=== PATIENT | male | born 1955 | race Hispanic/Latino ===

== ENCOUNTER → 2019-05-21 | Outpatient (CLI) | payer OTHER ==
[~2019-05-21] MED LIST: REGADENOSON 0.4 MG/5 ML PF SYG IVP SCH
== END | disposition home or self-care (01) ==
LOC: SHCH 08:39
PROVIDERS: ATTEND Internal Medicine Cardiovascular Disease
DX: I10 Essential (primary) hypertension (principal)
CPT/HCPCS: 78452; 93017; 96374; A9500 ×2; J2785

== ENCOUNTER → 2019-06-14 | Outpatient (CLI) | payer OTHER | END | disposition home or self-care (01) | LOC: SHCH 10:42 | PROVIDERS: ATTEND Internal Medicine Cardiovascular Disease | DX: I10 Essential (primary) hypertension (principal); I25.10 Atherosclerotic heart disease of native coronary artery without angina pectoris | CPT/HCPCS: 93306; 93880 ==

== ENCOUNTER → 2019-07-07 | Outpatient (CLI) | payer OTHER ==
[2019-07-07 10:19] LABS: CREATININE 1.4 mg/dL (0.5-1.5)
== END | disposition home or self-care (01) ==
LOC: LAB 09:36
PROVIDERS: ATTEND Internal Medicine Cardiovascular Disease
DX: I10 Essential (primary) hypertension (principal)
CPT/HCPCS: 36415; 82565; 84520

== ENCOUNTER → 2019-07-08 | Outpatient (CLI) | payer OTHER ==
[~2019-07-08] MED LIST changes: +IOHEXOL 350 MG/ML 100ML INFUS..BTL IV ONE; +IOHEXOL-350 50ML VIAL IV ONE; -REGADENOSON 0.4 MG/5 ML PF SYG IVP SCH
== END | disposition home or self-care (01) ==
LOC: RAH 08:48
PROVIDERS: ATTEND Internal Medicine Cardiovascular Disease
DX: I70.0 Atherosclerosis of aorta (principal); K76.0 Fatty (change of) liver, not elsewhere classified; I73.9 Peripheral vascular disease, unspecified
CPT/HCPCS: 75635; Q9967 ×2

== ENCOUNTER → 2019-12-29 | Outpatient (CLI) | payer OTHER | END | disposition home or self-care (01) | LOC: SHCH 10:14 | PROVIDERS: ATTEND Internal Medicine Cardiovascular Disease | DX: I25.10 Atherosclerotic heart disease of native coronary artery without angina pectoris (principal) | CPT/HCPCS: 93306; 93356 ==

== ENCOUNTER 2020-02-25 09:14 | Observation (INO) | payer OTHER ==
[2020-02-22 14:22] LABS: EOSINOPHILS % (AUTO) 3.3 % (0.0-8.0); HEMATOCRIT 29.8 % (42-54); LYMPHOCYTES % (AUTO) 23.5 % (21.0-51.0); MEAN CORPUSCULAR HEMOGLOBIN 27.3 pg (27.0-33.0); MEAN CORPUSCULAR HGB CONC 30.9 g/dL (32.0-36.0); MEAN CORPUSCULAR VOLUME 88.4 fL (79-99); MONOCYTES % (AUTO) 8.2 % (3.0-13.0); NEUTROPHILS % (AUTO) 63.7 % (40.0-77.0); PLATELET COUNT (AUTO) 217 K/uL (130-400); RED BLOOD CELL COUNT(AUTO) 3.37 MIL/uL (4.50-6.20); RED CELL DISTRIBUTION WIDTH 13.7 % (11.0-15.5); WHITE BLOOD COUNT (AUTO) 7.3 K/uL (4.8-10.8)
[2020-02-22 14:31] LABS: CREATININE 1.8 mg/dL (0.5-1.5); POTASSIUM 5.5 mmol/L (3.5-5.1)
[2020-02-22 14:35] LABS: INR 0.92 (0.85-1.15); PARTIAL THROMBOPLASTIN TIME 26.5 SEC (26.3-35.5)
[2020-02-22 15:54] LABS: APPEARANCE,URINE Clear (CLEAR); BILIRUBIN,URINE Negative (NEGATIVE); COLOR,URINE Yellow (YELLOW); GLUCOSE, URINE (UA) Negative (NEGATIVE); KETONES,URINE Negative (NEGATIVE); LEUKOCYTE ESTERASE ,URINE Trace (NEGATIVE); NITRATE,URINE Negative (NEGATIVE); OCCULT BLOOD,URINE Negative (NEGATIVE); PROTEIN,URINE Negative (NEGATIVE); UROBILINOGEN,URINE 0.2 mg/dL (0.2-1.0)
[2020-02-22 16:27] LABS: BACTERIA,URINE None Seen /HPF (None Seen); RBC,URINE 0-1 /HPF (0-1); SQUAMOUS EPITHELIAL CELL,UR 0-2 /HPF (0-2); WBC,URINE 0-1 /HPF (0-1)
[2020-02-24 10:55] VITALS: BP 130/57
--- NOTE | 2020-02-24 13:55 | NUR ---
ABNORMAL LABS REPORTED BUN 37, CREAT 1.8, HGB 9.2, HCT 29.8, AND ABNORMAL URINALYSIS TO ANUEL DUBOIS. RECEIVED ORDERS TO REPEAT CHEMISTRY IN AM.
[~2020-02-25] VITALS: Ht 175.3 cm; Wt 85.3 kg
[2020-02-25] VITALS (10 sets, daily range): BP systolic 131–151; BP diastolic 66–73
[~2020-02-25 09:14] MED LIST changes: +AEC81 PO; +ASCO250T22 PO; +ATOR40TA69 PO; +CILO50TA PO; +GLIP2.5T2 PO; +HYDR12.54 PO; +INSU3INS3 SQ; -IOHEXOL 350 MG/ML 100ML INFUS..BTL IV ONE; -IOHEXOL-350 50ML VIAL IV ONE; +LEVO25CA4 PO; +LISI10TA7 PO; +METF-444 PO; +METO-408 PO; +SERT100T12 PO; +SODIUM CHLORIDE 0.9% 1000ML 1,000 ML IV SCH; +VITAMIN D3 PO
[2020-02-25 09:54] LABS: CREATININE 1.4 mg/dL (0.5-1.5)
--- NOTE | 2020-02-25 12:00 | NUR ---
PATIENT AAOX3, VITAL SIGNS STABLE. SMALL DRY WOUND TO RIGHT FOOT PINK TOE. DENIES ANY PAIN AT THIS TIME. HOSPITAL ROUTINE EXPLAINED TO PATIENT.
[2020-02-25] MEDS ORDERED: MEPERIDINE-PF 25 MG/ML SYG ONE ×2 (14:00→16:02)
[2020-02-25] MEDS ORDERED: MIDAZOLAM HCL 1 MG/ML 2ML VIAL ONE ×2 (14:00→16:02)
[2020-02-25] MEDS ORDERED: NITROGLYCERIN 2 MG/VIAL VIAL IV ONE (14:00)
[2020-02-25] MEDS ORDERED: HEPARIN SODIUM 1000UNIT/ML 10ML VIAL ONE (14:00)
[2020-02-25] MEDS ORDERED: IODIXANOL 320 MG/ML 100 ML VIAL ONE (14:00)
[2020-02-25] MEDS ORDERED: LIDOCAINE HCL 2% 20ML ONE (14:01)
[2020-02-25] MEDS ORDERED: SODIUM BICARB 50MEQ 50ML VIAL 50 ML ONE (14:02)
[2020-02-25] MEDS ORDERED: CLOPIDOGREL BISULFATE 300 MG TAB ONE ×2 (16:00→16:03)
[2020-02-25] MEDS ORDERED: ASPIRIN 325MG EC TAB 325 MG TABLET.DR PO ONE (16:01)
[2020-02-25] MEDS ORDERED: DEXTROSE 50%-WATER 50 ML DISP.SYRIN IV PRN (16:30)
[2020-02-25] MEDS ORDERED: GLUCAGON 1MG KIT 1 MG ML IM PRN (16:30)
--- NOTE | 2020-02-25 16:30 | NUR ---
PATIENT RETURNED FROM [facility] VIA BED BY BROOKE MURRAY. PATIENT AAOX3, VITAL SIGNS STABLE, DENIES ANY PAIN AT THIS TIME. DRESSING TO LEFT GROIN DRY/INTACT. NO HEMATOMA/NO BLEEDING NOTED. AREA SOFT/NONTENDER.
[2020-02-25] MEDS: SODIUM CHLORIDE 0.9% 1000ML 1,000 ML IV SCH (18:20)
--- NOTE | 2020-02-25 18:30 | NUR ---
PATIENT TRANSFERRED TO ROOM 415 VIA BED. BROOKE MELÉNDEZ IN ROOM TO ASSESS PATIENT. DRESSING TO LEFT GROIN DRY/INTACT, NO HEMATOMA/NO BLEEDING NOTED. AREA SOFT/NONTENDER.
--- NOTE | 2020-02-25 19:55 | NUR ---
PM Assessment Received pt awake flat on bed, reminded till 0100 as reported, agreed. Routine assessment done, plan of care discuss, made aware if everything is OK throughout the night possible d/c tomorrow. Left groin puncture check, dressing dry/intact & soft on palpation. Pt denies discomfort, requested to use the urinal for now, last BM 02/24/2020
[2020-02-25] MEDS ORDERED: INSULIN GLARGINE 100 UNITS/ML 10 ML VIAL SQ SCH (21:00)
[2020-02-25] MEDS: INSULIN HUMULIN R 100 UNIT/ML 3ML SQ SCH (21:00)
[2020-02-25] MEDS ORDERED: SERTRALINE HCL 50 MG TABLET PO SCH (21:00)
[2020-02-25] MEDS ORDERED: ATORVASTATIN CALCIUM 40 MG TABLET PO SCH (21:00)
[2020-02-26 03:11] VITALS: BP 147/75
[2020-02-26 04:26] LABS: HEMATOCRIT 28.9 % (42-54); MEAN CORPUSCULAR HEMOGLOBIN 27.4 pg (27.0-33.0); MEAN CORPUSCULAR HGB CONC 31.8 g/dL (32.0-36.0); RED BLOOD CELL COUNT(AUTO) 3.36 MIL/uL (4.50-6.20); RED CELL DISTRIBUTION WIDTH 13.2 % (11.0-15.5); WHITE BLOOD COUNT (AUTO) 9.1 K/uL (4.8-10.8)
[2020-02-26 05:03] LABS: CREATININE 1.1 mg/dL (0.5-1.5); POTASSIUM 4.3 mmol/L (3.5-5.1)
[2020-02-26] MEDS ORDERED: LEVOTHYROXINE 25 MCG TABLET PO SCH (06:30)
[2020-02-26] MEDS: SODIUM CHLORIDE 0.9% 1000ML 1,000 ML IV SCH (06:55)
[2020-02-26] MEDS: INSULIN HUMULIN R 100 UNIT/ML 3ML SQ SCH ×2 (06:56→11:30)
[2020-02-26 07:00] VITALS: BP 128/68
[2020-02-26] MEDS ORDERED: GLIPIZIDE XL 2.5MG TAB PO SCH (09:00)
[2020-02-26] MEDS ORDERED: ASCORBIC ACID 500 MG TAB PO SCH (09:00)
[2020-02-26] MEDS ORDERED: ASPIRIN 81 MG EC TAB PO SCH (09:00)
[2020-02-26] MEDS ORDERED: HYDROCHLOROTHIAZIDE 25 MG TABLET PO SCH (09:00)
[2020-02-26] MEDS ORDERED: METOPROLOL SUCCINATE 50 MG TAB.SR.24H PO SCH (09:00)
[2020-02-26] MEDS ORDERED: VITAMIN D3 2000 UNIT PO SCH (09:00)
[2020-02-26] MEDS ORDERED: LISINOPRIL 10 MG TABLET PO SCH (09:00)
[2020-02-26 11:00] VITALS: BP 137/68
--- NOTE | 2020-02-26 11:30 | NUR ---
BS PT ALREADY EATEN NO BS TAKE AT THIS TIME.
[2020-02-26] MEDS ORDERED: CLOP75TA14 PO (12:56)
[2020-02-26] MEDS ORDERED: CILO100T PO (12:56)
--- NOTE | 2020-02-26 15:01 | NUR ---
F/U SHOT REVC'D 2 MONTHS AGO
--- NOTE | 2020-02-26 16:00 | NUR ---
D/C PT AAOX4 VS STABLE, D/C INSTRUCTIONS GIVEN WITH RX OF PLAVIX, PT VOICES NO PAIN TO SITE, GROIN NO HEMATOMA, NO BLEEDING DRESSING DRY AND INTACT, DP TO BILATERAL LOWER/EXT PRESENT. PT LEFT VIA WHEELCHAIR WITH F/U INSTRUCTIONS TO SEE LUANA IN 1-2 WEEKS AND PCT IN 2-3 DAYS
== END 2020-02-26 17:00 | disposition home or self-care (01) ==
LOC: DAH 09:14 → DAHIP 09:15 → DAH 09:15 → 4CH 19:15
PROVIDERS: ADMIT Family Medicine; ATTEND Family Medicine
DX: E11.51 Type 2 diabetes mellitus with diabetic peripheral angiopathy without gangrene (principal); I25.10 Atherosclerotic heart disease of native coronary artery without angina pectoris; I10 Essential (primary) hypertension; E78.5 Hyperlipidemia, unspecified; Z95.1 Presence of aortocoronary bypass graft; Z79.84 Long term (current) use of oral hypoglycemic drugs; Z79.899 Other long term (current) drug therapy
CPT/HCPCS: 36415 ×3; 37226; 37228; 71045; 75710; 80048 ×3; 81001; 82948 ×4; 85025; 85027; 85347; 85610; 85730; 93005; 96360; 96361 ×2; A4215; A4216; A4221; A4222; A4223 ×3; A4663; C1725; C1760; C1769 ×2; C1876; C1893; C1894; C2623; G0378 ×25; J1644 ×2; J2175 ×2; J2250 ×2; J3490 ×3; J7030 ×3; Q9967; 99156; 99157

== ENCOUNTER 2020-03-22 15:00 | Emergency (ER) | payer OTHER ==
[~2020-03-22 15:00] MED LIST changes: +CILO100T PO; -CILO50TA PO; +CLOP75TA14 PO; -SODIUM CHLORIDE 0.9% 1000ML 1,000 ML IV SCH
[2020-03-22 16:26] LABS: BASOPHILS % (AUTO) 1.1 % (0.0-5.0); EOSINOPHILS % (AUTO) 3.7 % (0.0-8.0); LYMPHOCYTES % (AUTO) 31.8 % (21.0-51.0); MEAN CORPUSCULAR HEMOGLOBIN 26.6 pg (27.0-33.0); MEAN CORPUSCULAR VOLUME 85.8 fL (79-99); MONOCYTES % (AUTO) 7.1 % (3.0-13.0); NEUTROPHILS % (AUTO) 55.6 % (40.0-77.0); PLATELET COUNT (AUTO) 289 K/uL (130-400); RED BLOOD CELL COUNT(AUTO) 3.38 MIL/uL (4.50-6.20); RED CELL DISTRIBUTION WIDTH 13.7 % (11.0-15.5); WHITE BLOOD COUNT (AUTO) 8.1 K/uL (4.8-10.8)
[2020-03-22 16:34] LABS: CREATININE 2.2 mg/dL (0.5-1.5); POTASSIUM 5.5 mmol/L (3.5-5.1)
[2020-03-22 16:39] LABS: ALBUMIN 3.4 g/dL (3.5-5.0); BILIRUBIN,TOTAL 0.1 mg/dL (0.2-1.0); TOTAL PROTEIN, SERUM 7.5 g/dL (6.0-8.3)
[2020-03-22] MEDS ORDERED: SODIUM POLYSTYRENE SULFONATE 15 GM/60 ML ML ONE (17:06)
[2020-03-22] MEDS ORDERED: CALCIUM GLUCONATE 1 GM/10 ML VIAL IV ONE (17:47)
[2020-03-22] MEDS ORDERED: SODIUM CHLORIDE 0.9% 1000ML 1,000 ML IV ONE (17:47)
[2020-03-22] MEDS ORDERED: SODIUM CHLORIDE 0.9% 100 ML IV ONE (17:48)
[2020-03-23] MEDS ORDERED: CLOP75TA32 PO (15:55)
[2020-03-23] MEDS ORDERED: CILO100T PO (15:55)
== END 2020-03-22 19:36 | disposition home or self-care (01) ==
LOC: EDH 15:00
DX: E87.5 Hyperkalemia (principal); I12.9 Hypertensive chronic kidney disease with stage 1 through stage 4 chronic kidney disease, or unspecified chronic kidney disease; E11.22 Type 2 diabetes mellitus with diabetic chronic kidney disease; N18.30 Chronic kidney disease, stage 3 unspecified; E78.00 Pure hypercholesterolemia, unspecified; I25.10 Atherosclerotic heart disease of native coronary artery without angina pectoris; Z88.6 Allergy status to analgesic agent; Z95.1 Presence of aortocoronary bypass graft; Z90.49 Acquired absence of other specified parts of digestive tract
CPT/HCPCS: 36415; 80053; 85025; 96365; 99284; J0610; J7030

== ENCOUNTER 2020-03-24 06:49 | Day surgery (SDC) | payer OTHER ==
[2020-03-22 11:24] LABS: BASOPHILS % (AUTO) 1.1 % (0.0-5.0); EOSINOPHILS % (AUTO) 3.4 % (0.0-8.0); HEMATOCRIT 28.2 % (42-54); LYMPHOCYTES % (AUTO) 25.4 % (21.0-51.0); MEAN CORPUSCULAR HEMOGLOBIN 26.9 pg (27.0-33.0); MEAN CORPUSCULAR HGB CONC 30.9 g/dL (32.0-36.0); MONOCYTES % (AUTO) 6.3 % (3.0-13.0); NEUTROPHILS % (AUTO) 63.2 % (40.0-77.0); PLATELET COUNT (AUTO) 282 K/uL (130-400); RED BLOOD CELL COUNT(AUTO) 3.24 MIL/uL (4.50-6.20); RED CELL DISTRIBUTION WIDTH 13.6 % (11.0-15.5)
[2020-03-22 11:30] LABS: APPEARANCE,URINE Clear (CLEAR); BILIRUBIN,URINE Negative (NEGATIVE); COLOR,URINE Yellow (YELLOW); GLUCOSE, URINE (UA) Negative (NEGATIVE); KETONES,URINE Negative (NEGATIVE); LEUKOCYTE ESTERASE ,URINE Small (NEGATIVE); NITRATE,URINE Negative (NEGATIVE); OCCULT BLOOD,URINE Negative (NEGATIVE); PROTEIN,URINE Negative (NEGATIVE); UROBILINOGEN,URINE 0.2 mg/dL (0.2-1.0)
[2020-03-22 11:33] LABS: CREATININE 2.3 mg/dL (0.5-1.5)
[2020-03-22 11:47] LABS: INR 0.99 (0.85-1.15); POTASSIUM 6.3 mmol/L (3.5-5.1); PROTHROMBIN TIME 10.6 SEC (9.6-11.6)
[2020-03-22 11:48] LABS: PARTIAL THROMBOPLASTIN TIME 27.8 SEC (26.3-35.5)
[2020-03-22 11:54] LABS: BACTERIA,URINE Few /HPF (None Seen); RBC,URINE 0-1 /HPF (0-1); SQUAMOUS EPITHELIAL CELL,UR 0-2 /HPF (0-2)
[2020-03-23 10:23] VITALS: BP 136/61
[~2020-03-24] VITALS: Ht 175.3 cm; Wt 84.6 kg
[2020-03-24] VITALS (11 sets, daily range): BP systolic 130–176; BP diastolic 61–79
[~2020-03-24 06:49] MED LIST changes: -AEC81 PO; -ASCO250T22 PO; -CLOP75TA14 PO; +CLOP75TA32 PO; -HYDR12.54 PO; -LISI10TA7 PO; +SODIUM CHLORIDE 0.9% 500ML 500 ML IV SCH; -VITAMIN D3 PO
[2020-03-24 07:18] LABS: HEMATOCRIT 29.6 % (42-54); LYMPHOCYTES % (AUTO) 31.8 % (21.0-51.0); MEAN CORPUSCULAR HGB CONC 30.4 g/dL (32.0-36.0); MEAN CORPUSCULAR VOLUME 85.5 fL (79-99); MONOCYTES % (AUTO) 7.2 % (3.0-13.0); NEUTROPHILS % (AUTO) 55.6 % (40.0-77.0); PLATELET COUNT (AUTO) 286 K/uL (130-400); RED BLOOD CELL COUNT(AUTO) 3.46 MIL/uL (4.50-6.20); RED CELL DISTRIBUTION WIDTH 13.5 % (11.0-15.5); WHITE BLOOD COUNT (AUTO) 6.8 K/uL (4.8-10.8)
[2020-03-24 07:29] LABS: CREATININE 1.6 mg/dL (0.5-1.5); POTASSIUM 5.6 mmol/L (3.5-5.1)
[2020-03-24] MEDS ORDERED: SODIUM CHLORIDE 0.9% 1000ML 1,000 ML IV SCH ×2 (08:00→11:30)
[2020-03-24] MEDS ORDERED: SODIUM BICARB 50MEQ 50ML VIAL 50 ML ONE (08:57)
[2020-03-24] MEDS ORDERED: HEPARIN SODIUM 1000UNIT/ML 10ML VIAL ONE (08:57)
[2020-03-24] MEDS ORDERED: NITROGLYCERIN 2 MG/VIAL VIAL IV ONE (08:57)
[2020-03-24] MEDS ORDERED: IOHEXOL-350 50ML VIAL IV ONE (08:58)
[2020-03-24] MEDS ORDERED: IOHEXOL 350 MG/ML 100ML INFUS..BTL IV ONE (08:58)
[2020-03-24] MEDS ORDERED: MIDAZOLAM HCL 1 MG/ML 2ML VIAL ONE (09:47)
[2020-03-24] MEDS ORDERED: MEPERIDINE-PF 25 MG/ML SYG ONE (09:47)
[2020-03-24] MEDS ORDERED: DEXTROSE 50%-WATER 50 ML DISP.SYRIN IV PRN (11:30)
[2020-03-24] MEDS ORDERED: INSULIN HUMULIN R 100 UNIT/ML 3ML SQ SCH (11:30)
[2020-03-24] MEDS ORDERED: GLUCAGON 1MG KIT 1 MG ML IM PRN (11:30)
== END 2020-03-24 17:28 | disposition home or self-care (01) ==
LOC: DAH 06:49
PROVIDERS: ATTEND Internal Medicine Cardiovascular Disease
DX: I25.118 Atherosclerotic heart disease of native coronary artery with other forms of angina pectoris (principal); I10 Essential (primary) hypertension; E78.5 Hyperlipidemia, unspecified; E11.9 Type 2 diabetes mellitus without complications; Z88.5 Allergy status to narcotic agent; Z79.01 Long term (current) use of anticoagulants; Z79.4 Long term (current) use of insulin; Z79.899 Other long term (current) drug therapy
CPT/HCPCS: 36415 ×2; 71045; 80048 ×2; 81001; 82948 ×3; 85025 ×2; 85610; 85730; 93005; 93461; A4215; A4216; A4221; A4222; A4223 ×3; A4606; A4663; C1760; C1769 ×3; C1893; C1894 ×2; J1644; J2175; J2250; J3490 ×2; Q9965; Q9967; 99156; 99157

== ENCOUNTER 2020-05-26 17:51 | Inpatient (IN) | payer OTHER ==
[~2020-05-26] VITALS: Ht 175.3 cm; Wt 79.1 kg
[2020-05-26] MEDS: METFORMIN HCL 500 MG TABLET PO SCH (08:25)
[2020-05-26] MEDS: ATORVASTATIN 40 MG TABLET PO SCH (08:25)
[~2020-05-26 17:51] MED LIST changes: +SERT-440 PO; -SERT100T12 PO; -SODIUM CHLORIDE 0.9% 500ML 500 ML IV SCH
[2020-05-26] MEDS ORDERED: ASPIRIN 325 MG TABLET ONE (17:59)
[2020-05-26 18:17] LABS: BASOPHILS % (AUTO) 0.5 % (0.0-5.0); HEMATOCRIT 25.7 % (42-54); LYMPHOCYTES % (AUTO) 10.7 % (21.0-51.0); MEAN CORPUSCULAR HEMOGLOBIN 25.1 pg (27.0-33.0); MEAN CORPUSCULAR HGB CONC 31.5 g/dL (32.0-36.0); MEAN CORPUSCULAR VOLUME 79.6 fL (79-99); MONOCYTES % (AUTO) 11.2 % (3.0-13.0); NEUTROPHILS % (AUTO) 76.2 % (40.0-77.0); PLATELET COUNT (AUTO) 278 K/uL (130-400); RED BLOOD CELL COUNT(AUTO) 3.23 MIL/uL (4.50-6.20); RED CELL DISTRIBUTION WIDTH 15.2 % (11.0-15.5); WHITE BLOOD COUNT (AUTO) 13.4 K/uL (4.8-10.8)
[2020-05-26 18:32] LABS: APPEARANCE,URINE Clear (CLEAR); BILIRUBIN,URINE Negative (NEGATIVE); COLOR,URINE Yellow (YELLOW); GLUCOSE, URINE (UA) Negative (NEGATIVE); KETONES,URINE Negative (NEGATIVE); LEUKOCYTE ESTERASE ,URINE Small (NEGATIVE); NITRATE,URINE Positive (NEGATIVE); OCCULT BLOOD,URINE Small (NEGATIVE); PROTEIN,URINE POS 2+ mg/dL (NEGATIVE); UROBILINOGEN,URINE 0.2 mg/dL (0.2-1.0)
[2020-05-26 18:36] LABS: CREATININE 1.7 mg/dL (0.5-1.5)
[2020-05-26 18:42] LABS: BACTERIA,URINE Many /HPF (None Seen); SQUAMOUS EPITHELIAL CELL,UR 0-2 /HPF (0-2)
[2020-05-26 18:42] LABS: INR 0.96 (0.85-1.15); PROTHROMBIN TIME 10.5 SEC (9.6-11.6)
[2020-05-26 18:43] LABS: ALBUMIN 3.5 g/dL (3.5-5.0); BILIRUBIN,TOTAL 0.3 mg/dL (0.2-1.0); TOTAL PROTEIN, SERUM 7.6 g/dL (6.0-8.3)
[2020-05-26 18:43] LABS: MUCUS,URINE Few LPF (None Seen)
[2020-05-26 18:44] LABS: PARTIAL THROMBOPLASTIN TIME 27.4 SEC (26.3-35.5)
[2020-05-26] MEDS ORDERED: METFORMIN HCL 500 MG TABLET ONE (19:41)
[2020-05-26] MEDS ORDERED: ATORVASTATIN 40 MG TABLET ONE (19:41)
[2020-05-26] MEDS ORDERED: SERTRALINE HCL 50 MG TABLET ONE (19:42)
[2020-05-26] MEDS ORDERED: NITROGLYCERIN 1GM OINT 1 INCH/1GM TD ONE (19:42)
[2020-05-26] MEDS ORDERED: METOPROLOL TARTRATE 25 MG TAB ONE (19:42)
[2020-05-26] MEDS ORDERED: 0.9%NACL 1000ML 1,000 ML IV ONE (20:14)
[2020-05-26] MEDS ORDERED: NON-FORMULARY MEDICATION 1 EACH (Sertraline HCl 100 MG) PO SCH (21:00)
[2020-05-26] MEDS ORDERED: ALBUTEROL 0.083% 2.5 MG/3 ML INH IH PRN (21:00)
[2020-05-26] MEDS ORDERED: LACTULOSE 20 GM/30 ML UDCUP PO PRN (21:00)
[2020-05-26] MEDS ORDERED: DiphenhydrAMINE HCL 50 MG/ML VIAL IV PRN (21:00)
[2020-05-26] MEDS ORDERED: NITROGLYCERIN 0.4 MG SL TAB SL PRN (21:00)
[2020-05-26] MEDS ORDERED: ACETAMINOPHEN 325 MG TAB PO PRN ×2 (21:00)
[2020-05-26] MEDS ORDERED: FAMOTIDINE 20MG VIAL IV SCH (21:00)
[2020-05-26] MEDS ORDERED: ONDANSETRON 4MG INJ IV PRN (21:00)
[2020-05-26] MEDS ORDERED: DOXYCYCLINE 100MG+NS 250ML IV SCH (21:00)
[2020-05-26] MEDS ORDERED: [UNRECOGNIZED DRUG - OTHER] SQ SCH (21:00)
[2020-05-26] MEDS ORDERED: DIPHENHYDRAMINE HCL 25 MG CAPSULE PO PRN (21:00)
[2020-05-26] MEDS ORDERED: MAG/ALUM/SIMETH 30 ML UDCUP PO PRN (21:00)
[2020-05-26] MEDS ORDERED: GUAIFENESIN-DM 200/20 MG 10 ML PO PRN (21:00)
[2020-05-26] MEDS ORDERED: INSULIN GLARGINE HUM REC ANLOG 28 UNIT SQ SCH (21:00)
[2020-05-26] MEDS ORDERED: FAMOTIDINE 20MG VIAL IV ONE (21:31)
[2020-05-26] MEDS ORDERED: CEFTRIAXONE 1G VIAL ONE (21:31)
[2020-05-26] MEDS ORDERED: DOXYCYCLINE 100MG+NS 250ML 250 ML IV ONE (21:31)
[2020-05-26 22:50] VITALS: BP 128/68
[2020-05-26 23:50] VITALS: BP 128/68
[2020-05-27] VITALS: BP_SYST 120; BP_SYST 126; BP_DIAS 65; BP_DIAS 75
[2020-05-27 01:15] LABS: BASOPHILS % (AUTO) 0.4 % (0.0-5.0); EOSINOPHILS % (AUTO) 0.4 % (0.0-8.0); LYMPHOCYTES % (AUTO) 9.4 % (21.0-51.0); MEAN CORPUSCULAR HEMOGLOBIN 25.1 pg (27.0-33.0); MEAN CORPUSCULAR HGB CONC 31.4 g/dL (32.0-36.0); MONOCYTES % (AUTO) 12.2 % (3.0-13.0); NEUTROPHILS % (AUTO) 77.3 % (40.0-77.0); PLATELET COUNT (AUTO) 212 K/uL (130-400); RED BLOOD CELL COUNT(AUTO) 2.75 MIL/uL (4.50-6.20); RED CELL DISTRIBUTION WIDTH 15.4 % (11.0-15.5); WHITE BLOOD COUNT (AUTO) 13.5 K/uL (4.8-10.8)
[2020-05-27 01:22] LABS: CREATININE 1.4 mg/dL (0.5-1.5); POTASSIUM 3.9 mmol/L (3.5-5.1)
[2020-05-27] MEDS: NITROGLYCERIN 1GM OINT 1 INCH/1GM TD SCH ×4 (02:02→17:05)
[2020-05-27 04:00] VITALS: BP 125/69
[2020-05-27] MEDS: LEVOTHYROXINE 25 MCG TABLET PO SCH (07:29)
[2020-05-27 08:00] VITALS: BP 109/65
[2020-05-27] MEDS: INSULIN GLARGINE 100 UNITS/ML 10 ML VIAL SQ SCH ×2 (08:25→21:00)
[2020-05-27] MEDS: SERTRALINE HCL 50 MG TABLET PO SCH ×2 (08:25→20:19)
[2020-05-27] MEDS: METOPROLOL TARTRATE 25 MG TAB PO SCH ×3 (08:25→20:18)
[2020-05-27] MEDS: DOXYCYCLINE 100MG+NS 250ML 250 ML IV SCH ×3 (08:25→20:20)
[2020-05-27] MEDS: CEFTRIAXONE 1G VIAL IVP SCH ×3 (08:25→20:18)
[2020-05-27] MEDS ORDERED: NON-FORMULARY MEDICATION 1 EACH (Levothyroxine Sodium (Levothyroxine) 25 MCG) PO SCH (09:00)
[2020-05-27] MEDS: GLIPIZIDE XL 2.5MG TAB PO SCH (10:51)
[2020-05-27] MEDS: METFORMIN HCL 500 MG TABLET PO SCH ×2 (10:51→20:18)
[2020-05-27 10:58] LABS: HEMATOCRIT 22.6 % (42-54)
[2020-05-27 11:13] LABS: ALBUMIN 2.7 g/dL (3.5-5.0); BILIRUBIN,TOTAL 0.3 mg/dL (0.2-1.0); CREATININE 1.3 mg/dL (0.5-1.5); POTASSIUM 3.8 mmol/L (3.5-5.1); TOTAL PROTEIN, SERUM 6.4 g/dL (6.0-8.3)
[2020-05-27 11:40] VITALS: BP 120/65
[2020-05-27 15:07] LABS: HEMATOCRIT 22.6 % (42-54)
[2020-05-27] MEDS ORDERED: COMPOUND IV REFRIGERATED 1 EACH IVSOLN MISC PRN (15:30)
[2020-05-27] MEDS ORDERED: PANTOPRAZOLE 40 MG TAB DR PO SCH (15:45)
[2020-05-27 16:00] VITALS: BP 118/63
[2020-05-27] MEDS ORDERED: PANTOPRAZOLE 40 MG/VIAL ONE (17:08)
[2020-05-27] MEDS ORDERED: PANTOPRAZOLE 40 MG TAB DR ONE (17:10)
[2020-05-27] MEDS: PANTOPRAZOLE 40MG INJ 80 MG in 0.9%NACL 100ML 100 ML IVP SCH (17:15)
[2020-05-27 20:00] VITALS: BP 114/68
[2020-05-27] MEDS: ATORVASTATIN 40 MG TABLET PO SCH (20:18)
[2020-05-27 21:35] LABS: HEMATOCRIT 22.7 % (42-54)
[2020-05-28] MEDS: NITROGLYCERIN 1GM OINT 1 INCH/1GM TD SCH ×4 (01:28→20:24)
[2020-05-28 03:00] VITALS: BP 123/66
[2020-05-28] MEDS: LEVOTHYROXINE 25 MCG TABLET PO SCH (05:45)
[2020-05-28 06:10] LABS: BASOPHILS % (AUTO) 0.5 % (0.0-5.0); EOSINOPHILS % (AUTO) 2.4 % (0.0-8.0); HEMATOCRIT 23.4 % (42-54); LYMPHOCYTES % (AUTO) 15.3 % (21.0-51.0); MEAN CORPUSCULAR HEMOGLOBIN 24.6 pg (27.0-33.0); MEAN CORPUSCULAR HGB CONC 30.8 g/dL (32.0-36.0); MEAN CORPUSCULAR VOLUME 79.9 fL (79-99); MONOCYTES % (AUTO) 11.5 % (3.0-13.0); PLATELET COUNT (AUTO) 247 K/uL (130-400); RED BLOOD CELL COUNT(AUTO) 2.93 MIL/uL (4.50-6.20); RED CELL DISTRIBUTION WIDTH 15.1 % (11.0-15.5); WHITE BLOOD COUNT (AUTO) 8.8 K/uL (4.8-10.8)
[2020-05-28 07:54] VITALS: BP 114/64
[2020-05-28] MEDS: METFORMIN HCL 500 MG TABLET PO SCH ×2 (09:00→20:24)
[2020-05-28] MEDS: GLIPIZIDE XL 2.5MG TAB PO SCH (09:00)
[2020-05-28] MEDS: DOXYCYCLINE 100MG+NS 250ML 250 ML IV SCH (09:08)
[2020-05-28] MEDS: METOPROLOL TARTRATE 25 MG TAB PO SCH ×2 (09:08→20:24)
[2020-05-28] MEDS: CEFTRIAXONE 1G VIAL IVP SCH ×2 (09:08→20:24)
[2020-05-28] MEDS: PANTOPRAZOLE 40MG INJ 80 MG in 0.9%NACL 100ML 100 ML IVP SCH (11:28)
[2020-05-28 11:58] VITALS: BP 125/71
[2020-05-28 14:04] LABS: HEMATOCRIT 22.9 % (42-54)
[2020-05-28 16:00] VITALS: BP 133/66
[2020-05-28 20:00] VITALS: BP 141/72
[2020-05-28] MEDS: ATORVASTATIN 40 MG TABLET PO SCH (20:24)
[2020-05-28] MEDS: SERTRALINE HCL 50 MG TABLET PO SCH (20:25)
[2020-05-28] MEDS: INSULIN GLARGINE 100 UNITS/ML 10 ML VIAL SQ SCH (21:00)
[2020-05-28 21:46] LABS: HEMATOCRIT 23.1 % (42-54)
[2020-05-28] MEDS ORDERED: PANTOPRAZOLE 40 MG/VIAL ONE (23:18)
[2020-05-28] MEDS ORDERED: 0.9% NACL 250ML 250 ML IV ONE (23:24)
[2020-05-29] VITALS (12 sets, daily range): BP systolic 81–143; BP diastolic 41–69
[2020-05-29] MEDS: NITROGLYCERIN 1GM OINT 1 INCH/1GM TD SCH ×4 (02:44→19:40)
[2020-05-29] MEDS: LEVOTHYROXINE 25 MCG TABLET PO SCH (05:24)
[2020-05-29 05:33] LABS: BASOPHILS % (AUTO) 0.6 % (0.0-5.0); EOSINOPHILS % (AUTO) 2.8 % (0.0-8.0); HEMATOCRIT 23.8 % (42-54); LYMPHOCYTES % (AUTO) 16.9 % (21.0-51.0); MEAN CORPUSCULAR HEMOGLOBIN 24.4 pg (27.0-33.0); MEAN CORPUSCULAR HGB CONC 30.3 g/dL (32.0-36.0); MEAN CORPUSCULAR VOLUME 80.7 fL (79-99); MONOCYTES % (AUTO) 13.1 % (3.0-13.0); NEUTROPHILS % (AUTO) 66.2 % (40.0-77.0); PLATELET COUNT (AUTO) 252 K/uL (130-400); RED BLOOD CELL COUNT(AUTO) 2.95 MIL/uL (4.50-6.20); RED CELL DISTRIBUTION WIDTH 15.1 % (11.0-15.5); WHITE BLOOD COUNT (AUTO) 8.5 K/uL (4.8-10.8)
[2020-05-29] MEDS: CEFTRIAXONE 1G VIAL IVP SCH ×2 (08:21→21:29)
[2020-05-29] MEDS: METOPROLOL TARTRATE 25 MG TAB PO SCH ×2 (09:00→21:28)
[2020-05-29] MEDS: METFORMIN HCL 500 MG TABLET PO SCH ×2 (09:00→21:27)
[2020-05-29] MEDS: GLIPIZIDE XL 2.5MG TAB PO SCH (09:00)
[2020-05-29] MEDS ORDERED: PROPOFOL 10 MG/ML 20ML VIAL IV ONE (11:22)
[2020-05-29] MEDS ORDERED: LACTULOSE 20 GM/30 ML UDCUP PO SCH ×2 (13:30→15:00)
[2020-05-29] MEDS ORDERED: MAGNESIUM CITRATE 296 ML SOLUTION PO SCH (15:30)
[2020-05-29] MEDS ORDERED: PEG 3350/NA SULF,BICARB,CL/KCL 4000 ML SOLN PO SCH (16:00)
[2020-05-29] MEDS ORDERED: BISACODYL 5 MG TABLET.DR PO SCH (17:00)
[2020-05-29] MEDS: ATORVASTATIN 40 MG TABLET PO SCH (21:27)
[2020-05-29] MEDS: SERTRALINE HCL 50 MG TABLET PO SCH (21:27)
[2020-05-29] MEDS: INSULIN GLARGINE 100 UNITS/ML 10 ML VIAL SQ SCH (21:29)
[2020-05-30] VITALS (21 sets, daily range): BP systolic 112–159; BP diastolic 48–81
[2020-05-30] MEDS: NITROGLYCERIN 1GM OINT 1 INCH/1GM TD SCH ×4 (01:01→19:00)
[2020-05-30 04:58] LABS: BASOPHILS % (AUTO) 0.9 % (0.0-5.0); EOSINOPHILS % (AUTO) 3.7 % (0.0-8.0); HEMATOCRIT 23.9 % (42-54); LYMPHOCYTES % (AUTO) 21.5 % (21.0-51.0); MEAN CORPUSCULAR HEMOGLOBIN 24.3 pg (27.0-33.0); MEAN CORPUSCULAR HGB CONC 30.5 g/dL (32.0-36.0); MEAN CORPUSCULAR VOLUME 79.7 fL (79-99); MONOCYTES % (AUTO) 10.7 % (3.0-13.0); PLATELET COUNT (AUTO) 255 K/uL (130-400); WHITE BLOOD COUNT (AUTO) 8.1 K/uL (4.8-10.8)
[2020-05-30] MEDS ORDERED: DEXTROSE 50%-WATER 50 ML DISP.SYRIN IV ONE (05:11)
[2020-05-30 05:13] LABS: ALBUMIN 2.5 g/dL (3.5-5.0); BILIRUBIN,TOTAL 0.3 mg/dL (0.2-1.0); CREATININE 1.2 mg/dL (0.5-1.5); POTASSIUM 3.4 mmol/L (3.5-5.1); TOTAL PROTEIN, SERUM 6.4 g/dL (6.0-8.3)
[2020-05-30] MEDS: LEVOTHYROXINE 25 MCG TABLET PO SCH (06:27)
[2020-05-30] MEDS: METOPROLOL TARTRATE 25 MG TAB PO SCH ×2 (08:16→21:10)
[2020-05-30] MEDS: CEFTRIAXONE 1G VIAL IVP SCH ×2 (08:16→21:10)
[2020-05-30] MEDS: METFORMIN HCL 500 MG TABLET PO SCH ×2 (08:26→21:10)
[2020-05-30] MEDS: GLIPIZIDE XL 2.5MG TAB PO SCH (08:27)
[2020-05-30] MEDS: PANTOPRAZOLE 40MG INJ 80 MG in 0.9%NACL 100ML 100 ML IVP SCH (11:07)
[2020-05-30] MEDS ORDERED: DEXTROSE 50%-WATER 50 ML DISP.SYRIN IV PRN (12:00)
[2020-05-30] MEDS ORDERED: GLUCAGON 1MG KIT 1 MG ML IM PRN (12:00)
[2020-05-30] MEDS ORDERED: PROPOFOL 10 MG/ML 20ML VIAL IV ONE ×4 (12:19→13:37)
[2020-05-30] MEDS ORDERED: LIDOCAINE HCL 1% 20 ML VIAL ONE (12:20)
[2020-05-30] MEDS ORDERED: SIMETHICONE 40 MG/0.6 ML ML ONE (12:41)
[2020-05-30] MEDS ORDERED: EPHEDRINE SULFATE 50 MG/ML AMPULE ONE (13:24)
[2020-05-30] MEDS ORDERED: PEG 3350/NA SULF,BICARB,CL/KCL 4000 ML SOLN PO SCH (16:00)
[2020-05-30] MEDS: INSULIN GLARGINE 100 UNITS/ML 10 ML VIAL SQ SCH (21:00)
[2020-05-30] MEDS: ATORVASTATIN 40 MG TABLET PO SCH (21:10)
[2020-05-30] MEDS: SERTRALINE HCL 50 MG TABLET PO SCH (21:11)
[2020-05-31] VITALS (17 sets, daily range): BP systolic 98–165; BP diastolic 48–76
[2020-05-31] MEDS: NITROGLYCERIN 1GM OINT 1 INCH/1GM TD SCH ×3 (01:00→13:00)
[2020-05-31 04:32] LABS: BASOPHILS % (AUTO) 0.5 % (0.0-5.0); EOSINOPHILS % (AUTO) 7.6 % (0.0-8.0); HEMATOCRIT 26.5 % (42-54); LYMPHOCYTES % (AUTO) 16.1 % (21.0-51.0); MEAN CORPUSCULAR HEMOGLOBIN 25.2 pg (27.0-33.0); MEAN CORPUSCULAR HGB CONC 30.9 g/dL (32.0-36.0); MEAN CORPUSCULAR VOLUME 81.3 fL (79-99); MONOCYTES % (AUTO) 10.4 % (3.0-13.0); NEUTROPHILS % (AUTO) 65.1 % (40.0-77.0); PLATELET COUNT (AUTO) 263 K/uL (130-400); RED BLOOD CELL COUNT(AUTO) 3.26 MIL/uL (4.50-6.20); RED CELL DISTRIBUTION WIDTH 15.6 % (11.0-15.5); WHITE BLOOD COUNT (AUTO) 8.7 K/uL (4.8-10.8)
[2020-05-31] MEDS: LEVOTHYROXINE 25 MCG TABLET PO SCH (06:54)
[2020-05-31] MEDS: METFORMIN HCL 500 MG TABLET PO SCH (08:00)
[2020-05-31] MEDS: GLIPIZIDE XL 2.5MG TAB PO SCH (08:00)
[2020-05-31] MEDS: CEFTRIAXONE 1G VIAL IVP SCH (08:11)
[2020-05-31] MEDS: METOPROLOL TARTRATE 25 MG TAB PO SCH (08:11)
[2020-05-31 09:37] LABS: CREATININE 1.1 mg/dL (0.5-1.5)
[2020-05-31] MEDS ORDERED: PROPOFOL 10 MG/ML 20ML VIAL IV ONE (11:28)
[2020-05-31] MEDS ORDERED: LIDOCAINE HCL 400MG/20ML VIAL ONE (11:29)
[2020-05-31] MEDS ORDERED: PANT40TA55 PO (12:47)
[2020-05-31] MEDS ORDERED: CEPH500B PO (13:04)
[2020-06-01] MEDS ORDERED: PANTOPRAZOLE 40 MG TAB DR PO SCH (09:00)
== END 2020-05-31 19:10 | disposition home or self-care (01) | DRG 394 ==
LOC: EDH 17:51 → EDHIP 20:49 → 4AH 22:47
PROVIDERS: ADMIT Family Medicine; ATTEND Family Medicine
PROC: 0DB98ZZ Excision of Duodenum, Via Natural or Artificial Opening Endoscopic (ICD-10-PCS; 2020-05-29)
PROC: 0DB68ZZ Excision of Stomach, Via Natural or Artificial Opening Endoscopic (ICD-10-PCS; 2020-05-29)
PROC: 0DB38ZZ Excision of Lower Esophagus, Via Natural or Artificial Opening Endoscopic (ICD-10-PCS; 2020-05-29)
PROC: 30233N1 Transfusion of Nonautologous Red Blood Cells into Peripheral Vein, Percutaneous Approach (ICD-10-PCS; principal; 2020-05-30)
PROC: 0DBL8ZZ Excision of Transverse Colon, Via Natural or Artificial Opening Endoscopic (ICD-10-PCS; 2020-05-30)
PROC: 0DBH8ZZ Excision of Cecum, Via Natural or Artificial Opening Endoscopic (ICD-10-PCS; 2020-05-30)
PROC: 0DBL8ZZ Excision of Transverse Colon, Via Natural or Artificial Opening Endoscopic (ICD-10-PCS; 2020-05-31)
DX: K63.5 Polyp of colon (principal); N39.0 Urinary tract infection, site not specified; K21.00 Gastro-esophageal reflux disease with esophagitis, without bleeding; K29.00 Acute gastritis without bleeding; K44.9 Diaphragmatic hernia without obstruction or gangrene; K64.0 First degree hemorrhoids; Z95.1 Presence of aortocoronary bypass graft; I12.9 Hypertensive chronic kidney disease with stage 1 through stage 4 chronic kidney disease, or unspecified chronic kidney disease; N18.32 Chronic kidney disease, stage 3b; E78.00 Pure hypercholesterolemia, unspecified; E11.22 Type 2 diabetes mellitus with diabetic chronic kidney disease; E03.9 Hypothyroidism, unspecified; E78.5 Hyperlipidemia, unspecified; I25.10 Atherosclerotic heart disease of native coronary artery without angina pectoris; Z20.822 Contact with and (suspected) exposure to COVID-19; Z88.5 Allergy status to narcotic agent; Z87.440 Personal history of urinary (tract) infections; Z82.0 Family history of epilepsy and other diseases of the nervous system; Z80.8 Family history of malignant neoplasm of other organs or systems; Z95.3 Presence of xenogenic heart valve; E66.9 Obesity, unspecified; Z68.25 Body mass index [BMI] 25.0-25.9, adult; Z82.49 Family history of ischemic heart disease and other diseases of the circulatory system; Z83.3 Family history of diabetes mellitus; Z95.5 Presence of coronary angioplasty implant and graft; B96.20 Unspecified Escherichia coli [E. coli] as the cause of diseases classified elsewhere; R53.81 Other malaise; D64.9 Anemia, unspecified
CPT/HCPCS: 36415; 36430; 43239; 45381; 45385; 71045; 71250; 74176; 80048; 80053; 81001; 82270; 82550; 82728; 82948; 83540; 83550; 83605; 83880; 84145; 84484; 85014; 85018; 85025; 85378; 85610; 85730; 86140; 86850; 86900; 86901; 86923; 87040; 87077; 87088; 87186; 87426; 88305; 88341; 88342; 93005; 99291; A4606; C9113; G0378; J0696; J1200; J2704; J3490; J7030; J7050; J7070; P9016; U0003

== ENCOUNTER 2020-06-11 21:40 | Inpatient (IN) | payer OTHER ==
[~2020-06-11] VITALS: Ht 172.7 cm; Wt 84.7 kg
[~2020-06-11 21:40] MED LIST changes: +CEPH500B PO; +PANT40TA55 PO
[2020-06-11 22:01] LABS: BASOPHILS % (AUTO) 1.2 % (0.0-5.0); EOSINOPHILS % (AUTO) 4.6 % (0.0-8.0); LYMPHOCYTES % (AUTO) 27.3 % (21.0-51.0); MEAN CORPUSCULAR HEMOGLOBIN 24.7 pg (27.0-33.0); MEAN CORPUSCULAR HGB CONC 30.6 g/dL (32.0-36.0); MEAN CORPUSCULAR VOLUME 80.7 fL (79-99); MONOCYTES % (AUTO) 8.1 % (3.0-13.0); NEUTROPHILS % (AUTO) 58.4 % (40.0-77.0); PLATELET COUNT (AUTO) 321 K/uL (130-400); RED BLOOD CELL COUNT(AUTO) 2.59 MIL/uL (4.50-6.20); RED CELL DISTRIBUTION WIDTH 16.3 % (11.0-15.5); WHITE BLOOD COUNT (AUTO) 7.7 K/uL (4.8-10.8)
[2020-06-11] MEDS ORDERED: ONDANSETRON 4MG INJ ONE (22:01)
[2020-06-11 22:07] LABS: HEMATOCRIT 20.9 % (42-54)
[2020-06-11 22:17] LABS: CREATININE 1.7 mg/dL (0.5-1.5); INR 1.05 (0.85-1.15); POTASSIUM 3.9 mmol/L (3.5-5.1); PROTHROMBIN TIME 11.4 SEC (9.6-11.6)
[2020-06-11 22:18] LABS: PARTIAL THROMBOPLASTIN TIME 21.2 SEC (26.3-35.5)
[2020-06-11 22:21] LABS: ALBUMIN 2.8 g/dL (3.5-5.0); BILIRUBIN,TOTAL 0.1 mg/dL (0.2-1.0); TOTAL PROTEIN, SERUM 6.3 g/dL (6.0-8.3)
[2020-06-11] MEDS ORDERED: 0.9% NACL 250ML 250 ML IV ONE (23:19)
[2020-06-12] VITALS (11 sets, daily range): BP systolic 96–153; BP diastolic 50–84
[2020-06-12] MEDS ORDERED: ACETAMINOPHEN 325 MG TAB PO PRN ×2
[2020-06-12] MEDS ORDERED: PANTOPRAZOLE 40 MG/VIAL ONE (00:12)
[2020-06-12] MEDS ORDERED: 0.9%NACL 100ML 100 ML IV ONE (00:13)
[2020-06-12 01:03] LABS: CREATINE KINASE, TOTAL 66 U/L (21-232); MYOGLOBIN 46 ng/mL (10-92); TROPONIN I < 0.04 ng/mL (0.00-0.06)
[2020-06-12] MEDS: ZOSYN 3.375GM+NS 50ML 50 ML IV SCH ×3 (01:30→17:30)
[2020-06-12 01:40] LABS: HEMOGLOBIN A1C 7.3 % (4.0-6.0)
[2020-06-12] MEDS ORDERED: 0.9% NACL 250ML 250 ML IV ONE (03:40)
[2020-06-12] MEDS ORDERED: OCTREOTIDE ACETATE 100 MCG/ML AMP ONE (03:41)
[2020-06-12] MEDS ORDERED: OCTREOTIDE ACETATE 200 MCG/ML 5 ML VIAL ONE (03:42)
[2020-06-12 05:29] LABS: BASOPHILS % (AUTO) 0.6 % (0.0-5.0); EOSINOPHILS % (AUTO) 0.6 % (0.0-8.0); LYMPHOCYTES % (AUTO) 13.6 % (21.0-51.0); MEAN CORPUSCULAR HEMOGLOBIN 26.2 pg (27.0-33.0); MEAN CORPUSCULAR HGB CONC 32.2 g/dL (32.0-36.0); MEAN CORPUSCULAR VOLUME 81.4 fL (79-99); MONOCYTES % (AUTO) 5.8 % (3.0-13.0); PLATELET COUNT (AUTO) 221 K/uL (130-400); RED BLOOD CELL COUNT(AUTO) 2.21 MIL/uL (4.50-6.20); RED CELL DISTRIBUTION WIDTH 15.6 % (11.0-15.5); WHITE BLOOD COUNT (AUTO) 8.1 K/uL (4.8-10.8)
[2020-06-12 05:44] LABS: ALBUMIN 2.3 g/dL (3.5-5.0); BILIRUBIN,TOTAL 0.3 mg/dL (0.2-1.0); CREATININE 1.6 mg/dL (0.5-1.5); POTASSIUM 4.7 mmol/L (3.5-5.1)
[2020-06-12 05:48] LABS: INR 1.09 (0.85-1.15); PROTHROMBIN TIME 11.8 SEC (9.6-11.6)
[2020-06-12] MEDS ORDERED: [UNRECOGNIZED DRUG - OTHER] IJ SCH ×2 (06:30→08:30)
[2020-06-12] MEDS ORDERED: DESMOPRESSIN IJ SCH ×2 (06:30→08:30)
[2020-06-12] MEDS: LEVOTHYROXINE 25 MCG TABLET PO SCH (06:53)
[2020-06-12] MEDS ORDERED: DiphenhydrAMINE HCL 50 MG/ML VIAL IV SCH (08:15)
[2020-06-12 08:48] LABS: HEMATOCRIT 18.3 % (42-54)
[2020-06-12] MEDS ORDERED: PANTOPRAZOLE 40MG INJ 80 MG in 0.9%NACL 100ML 100 ML IV SCH (09:00)
[2020-06-12 09:08] LABS: CREATINE KINASE, TOTAL 56 U/L (21-232); MYOGLOBIN 46 ng/mL (10-92); TROPONIN I < 0.04 ng/mL (0.00-0.06)
[2020-06-12] MEDS ORDERED: PEG 3350/NA SULF,BICARB,CL/KCL 4000 ML SOLN PO SCH (10:30)
[2020-06-12] MEDS ORDERED: PEG 3350/NA SULF,BICARB,CL/KCL 4000 ML SOLN PO STA (10:30)
[2020-06-12] MEDS: SERTRALINE HCL 50 MG TABLET PO SCH (11:28)
[2020-06-12 12:55] LABS: HEMATOCRIT 20.7 % (42-54)
[2020-06-12 14:04] LABS: CREATINE KINASE, TOTAL 70 U/L (21-232); MYOGLOBIN 44 ng/mL (10-92); TROPONIN I < 0.04 ng/mL (0.00-0.06)
[2020-06-12] MEDS: ONDANSETRON 4MG INJ IV PRN ×2 (15:23→20:15)
[2020-06-12] MEDS ORDERED: PHENYLEPHRINE HCL 10 MG/ML 1ML VIAL IV ONE ×2 (17:08→17:47)
[2020-06-12] MEDS ORDERED: PROPOFOL 10 MG/ML 20ML VIAL IV ONE ×2 (17:26→17:45)
[2020-06-12] MEDS ORDERED: ALBUMIN (HUMAN) 25% 100 ML IV ONE (17:39)
[2020-06-12] MEDS ORDERED: ALBUMIN (HUMAN) 5% 250 ML IV ONE (17:39)
[2020-06-12] MEDS ORDERED: EPINEPHRINE PF 1MG AMP ONE (17:44)
[2020-06-12 17:55] LABS: HEMATOCRIT 18.6 % (42-54)
[2020-06-12 17:55] LABS: ABG BASE EXCESS -7.6 mmol/L (-2.0-3.0); ABG HCO3 18.5 mmol/L (21.0-28.0); ABG OXYGEN SATURATION 96.3 % (95.0-99.0); ABG PCO2 40 mmHg (35-48)
[2020-06-12] MEDS ORDERED: SODIUM BICARB 50MEQ 50ML VIAL 100 ML ONE ×2 (17:58→18:01)
[2020-06-12] MEDS ORDERED: NOREPINEPHRIN 4MG/NS 250ML 250 ML IV ONE (18:54)
[2020-06-12] MEDS ORDERED: COMPOUND IV REFRIGERATED 1 EACH IVSOLN MISC PRN (19:00)
[2020-06-12] MEDS ORDERED: MORPHINE 2 MG SYG ONE (20:56)
[2020-06-12] MEDS: PANTOPRAZOLE 40MG INJ 80 MG in 0.9%NACL 100ML 100 ML IVP SCH (21:05)
[2020-06-12] MEDS ORDERED: MORPHINE 2 MG SYG IVP ONE (21:15)
[2020-06-12] MEDS: INSULIN GLARGINE 100 UNITS/ML 10 ML VIAL SQ SCH ×2 (22:21)
[2020-06-12] MEDS: ATORVASTATIN 40 MG TABLET PO SCH (22:22)
[2020-06-13] VITALS (17 sets, daily range): BP systolic 100–135; BP diastolic 53–81
[2020-06-13 01:12] LABS: HEMATOCRIT 26.7 % (42-54); MEAN CORPUSCULAR HEMOGLOBIN 29.1 pg (27.0-33.0); MEAN CORPUSCULAR HGB CONC 35.6 g/dL (32.0-36.0); MEAN CORPUSCULAR VOLUME 81.9 fL (79-99); RED BLOOD CELL COUNT(AUTO) 3.26 MIL/uL (4.50-6.20); RED CELL DISTRIBUTION WIDTH 14.7 % (11.0-15.5); WHITE BLOOD COUNT (AUTO) 20.1 K/uL (4.8-10.8)
[2020-06-13] MEDS: ZOSYN 3.375GM+NS 50ML 50 ML IV SCH ×3 (01:30→16:30)
[2020-06-13 01:49] LABS: ALBUMIN 2.6 g/dL (3.5-5.0); BILIRUBIN,TOTAL 0.7 mg/dL (0.2-1.0); CREATININE 1.7 mg/dL (0.5-1.5); POTASSIUM 4.5 mmol/L (3.5-5.1); TOTAL PROTEIN, SERUM 4.7 g/dL (6.0-8.3)
[2020-06-13 04:15] LABS: BASOPHILS % (AUTO) 0.2 % (0.0-5.0); EOSINOPHILS % (AUTO) 0.6 % (0.0-8.0); HEMATOCRIT 23.5 % (42-54); LYMPHOCYTES % (AUTO) 5.6 % (21.0-51.0); MEAN CORPUSCULAR HEMOGLOBIN 29.5 pg (27.0-33.0); MEAN CORPUSCULAR HGB CONC 36.2 g/dL (32.0-36.0); MEAN CORPUSCULAR VOLUME 81.6 fL (79-99); MONOCYTES % (AUTO) 5.3 % (3.0-13.0); NEUTROPHILS % (AUTO) 87.7 % (40.0-77.0); PLATELET COUNT (AUTO) 177 K/uL (130-400); RED BLOOD CELL COUNT(AUTO) 2.88 MIL/uL (4.50-6.20); RED CELL DISTRIBUTION WIDTH 14.8 % (11.0-15.5); WHITE BLOOD COUNT (AUTO) 19.9 K/uL (4.8-10.8)
[2020-06-13 04:28] LABS: CREATININE 1.7 mg/dL (0.5-1.5); POTASSIUM 4.3 mmol/L (3.5-5.1)
[2020-06-13] MEDS: LEVOTHYROXINE 25 MCG TABLET PO SCH (06:10)
[2020-06-13] MEDS: PANTOPRAZOLE 40MG INJ 80 MG in 0.9%NACL 100ML 100 ML IVP SCH (06:10)
[2020-06-13] MEDS: METOPROLOL SUCCINATE 50 MG TAB.SR.24H PO SCH (07:58)
[2020-06-13] MEDS: SERTRALINE HCL 50 MG TABLET PO SCH (07:58)
[2020-06-13] MEDS ORDERED: NON-FORMULARY MEDICATION 1 EACH (Metoprolol Succinate 25 MG) PO SCH (09:00)
[2020-06-13] MEDS ORDERED: NON-FORMULARY MEDICATION 1 EACH (Levothyroxine Sodium (Levothyroxine) 25 MCG) PO SCH (09:00)
[2020-06-13 09:29] LABS: APPEARANCE,URINE Clear (CLEAR); BILIRUBIN,URINE Negative (NEGATIVE); COLOR,URINE Yellow (YELLOW); GLUCOSE, URINE (UA) >=1000 mg/dL (NEGATIVE); KETONES,URINE Negative (NEGATIVE); LEUKOCYTE ESTERASE ,URINE Negative (NEGATIVE); NITRATE,URINE Negative (NEGATIVE); OCCULT BLOOD,URINE Negative (NEGATIVE); PROTEIN,URINE Trace mg/dL (NEGATIVE); UROBILINOGEN,URINE 0.2 mg/dL (0.2-1.0)
[2020-06-13 09:33] LABS: BACTERIA,URINE Rare /HPF (None Seen); RBC,URINE 0-1 /HPF (0-1); SQUAMOUS EPITHELIAL CELL,UR Rare /HPF (0-2); WBC,URINE 0-1 /HPF (0-1)
[2020-06-13] MEDS ORDERED: INSULIN GLARGINE 100 UNITS/ML 10 ML VIAL SQ SCH (10:45)
[2020-06-13] MEDS: INSULIN HUMULIN R 100 UNIT/ML 3ML SQ SCH ×3 (11:34→20:22)
[2020-06-13 12:46] LABS: HEMATOCRIT 22.3 % (42-54)
[2020-06-13] MEDS ORDERED: INSULIN HUMULIN R 100 UNIT/ML 3ML SQ SCH (15:45)
[2020-06-13 18:30] LABS: HEMATOCRIT 25.1 % (42-54)
[2020-06-13 20:53] LABS: HEMATOCRIT 26.2 % (42-54)
[2020-06-13] MEDS: INSULIN GLARGINE 100 UNITS/ML 10 ML VIAL SQ SCH (21:00)
[2020-06-13] MEDS: ATORVASTATIN 40 MG TABLET PO SCH (21:32)
[2020-06-13] MEDS ORDERED: DEXTROSE 50%-WATER 50 ML DISP.SYRIN IV ONE (22:29)
[2020-06-14] VITALS (15 sets, daily range): BP systolic 99–140; BP diastolic 58–78
[2020-06-14] MEDS: ZOSYN 3.375GM+NS 50ML 50 ML IV SCH ×3 (01:10→16:29)
[2020-06-14] MEDS ORDERED: DEXTROSE 50%-WATER 50 ML DISP.SYRIN IV ONE (01:19)
[2020-06-14 04:06] LABS: HEMATOCRIT 23.6 % (42-54); MEAN CORPUSCULAR HEMOGLOBIN 28.5 pg (27.0-33.0); MEAN CORPUSCULAR HGB CONC 34.3 g/dL (32.0-36.0); MEAN CORPUSCULAR VOLUME 83.1 fL (79-99); NUCLEATED RED BLOOD CELLS 0.2 % (0.0-0.19); RED BLOOD CELL COUNT(AUTO) 2.84 MIL/uL (4.50-6.20); RED CELL DISTRIBUTION WIDTH 15.1 % (11.0-15.5); WHITE BLOOD COUNT (AUTO) 14.2 K/uL (4.8-10.8)
[2020-06-14 04:19] LABS: CREATININE 1.5 mg/dL (0.5-1.5); POTASSIUM 3.6 mmol/L (3.5-5.1)
[2020-06-14] MEDS: LEVOTHYROXINE 25 MCG TABLET PO SCH (06:18)
[2020-06-14] MEDS ORDERED: FUROSEMIDE 40MG VIAL IV SCH (07:15)
[2020-06-14] MEDS: INSULIN HUMULIN R 100 UNIT/ML 3ML SQ SCH ×4 (07:27→21:29)
[2020-06-14] MEDS: PANTOPRAZOLE 40 MG TAB DR PO SCH (07:41)
[2020-06-14] MEDS: SERTRALINE HCL 50 MG TABLET PO SCH (07:41)
[2020-06-14 09:00] LABS: HEMATOCRIT 23.6 % (42-54)
[2020-06-14] MEDS: METOPROLOL SUCCINATE 50 MG TAB.SR.24H PO SCH (09:00)
[2020-06-14] MEDS: AZITHROMYCIN 500MG+NS 250ML 250 ML IV SCH (14:24)
[2020-06-14 14:55] LABS: CREATININE 1.7 mg/dL (0.5-1.5); MAGNESIUM 1.6 mg/dL (1.80-2.40); POTASSIUM 3.9 mmol/L (3.5-5.1)
[2020-06-14 15:30] LABS: HEMATOCRIT 24.1 % (42-54)
[2020-06-14] MEDS: FUROSEMIDE 20MG VIAL IV SCH (16:28)
[2020-06-14] MEDS: MAGNESIUM 2GM PREMIX 50ML 50 ML IV SCH (16:29)
[2020-06-14] MEDS: ONDANSETRON 4MG INJ IV PRN (16:45)
[2020-06-14] MEDS: FERROUS SULFATE 325 MG TABLET.DR PO SCH (20:19)
[2020-06-14] MEDS: ATORVASTATIN 40 MG TABLET PO SCH (20:19)
[2020-06-15] MEDS: ZOSYN 3.375GM+NS 50ML 50 ML IV SCH ×3 (02:11→18:14)
[2020-06-15 03:42] LABS: HEMATOCRIT 24.9 % (42-54)
[2020-06-15] MEDS: FUROSEMIDE 20MG VIAL IV SCH ×2 (05:05→14:34)
[2020-06-15 05:34] LABS: CREATININE 1.8 mg/dL (0.5-1.5); POTASSIUM 3.4 mmol/L (3.5-5.1)
[2020-06-15 05:43] LABS: BASOPHILS % (AUTO) 0.6 % (0.0-5.0); LYMPHOCYTES % (AUTO) 12.8 % (21.0-51.0); MEAN CORPUSCULAR HEMOGLOBIN 29.6 pg (27.0-33.0); MEAN CORPUSCULAR VOLUME 84.6 fL (79-99); MONOCYTES % (AUTO) 9.1 % (3.0-13.0); NEUTROPHILS % (AUTO) 72.2 % (40.0-77.0); NUCLEATED RED BLOOD CELLS 0.5 % (0.0-0.19); PLATELET COUNT (AUTO) 146 K/uL (130-400); RED CELL DISTRIBUTION WIDTH 15.2 % (11.0-15.5); WHITE BLOOD COUNT (AUTO) 10.3 K/uL (4.8-10.8)
[2020-06-15] MEDS: PANTOPRAZOLE 40 MG TAB DR PO SCH (06:06)
[2020-06-15] MEDS: LEVOTHYROXINE 25 MCG TABLET PO SCH (06:06)
[2020-06-15] MEDS: INSULIN HUMULIN R 100 UNIT/ML 3ML SQ SCH ×4 (06:16→19:57)
[2020-06-15 08:00] VITALS: BP 140/72
[2020-06-15] MEDS ORDERED: KCL 20 MEQ ERTAB PO SCH (08:15)
[2020-06-15] MEDS: METOPROLOL SUCCINATE 50 MG TAB.SR.24H PO SCH (08:50)
[2020-06-15] MEDS: SERTRALINE HCL 50 MG TABLET PO SCH (08:51)
[2020-06-15] MEDS: FERROUS SULFATE 325 MG TABLET.DR PO SCH ×2 (08:52→19:56)
[2020-06-15 09:00] VITALS: BP 129/71
[2020-06-15 09:07] LABS: HEMATOCRIT 25.1 % (42-54)
[2020-06-15] MEDS: AZITHROMYCIN 500MG+NS 250ML 250 ML IV SCH (14:33)
[2020-06-15 17:19] VITALS: BP 135/74
[2020-06-15] MEDS: ATORVASTATIN 40 MG TABLET PO SCH (19:56)
[2020-06-15 19:58] VITALS: BP 141/70
[2020-06-15 23:39] VITALS: BP 119/75
[2020-06-16] MEDS: ZOSYN 3.375GM+NS 50ML 50 ML IV SCH (00:23)
[2020-06-16] MEDS: FUROSEMIDE 20MG VIAL IV SCH (03:23)
[2020-06-16 03:48] VITALS: BP 124/72
[2020-06-16] MEDS: INSULIN HUMULIN R 100 UNIT/ML 3ML SQ SCH ×3 (05:44→16:30)
[2020-06-16] MEDS: PANTOPRAZOLE 40 MG TAB DR PO SCH (05:46)
[2020-06-16] MEDS: LEVOTHYROXINE 25 MCG TABLET PO SCH (05:46)
[2020-06-16 05:59] LABS: EOSINOPHILS % (AUTO) 4.8 % (0.0-8.0); HEMATOCRIT 25.9 % (42-54); MEAN CORPUSCULAR HEMOGLOBIN 28.7 pg (27.0-33.0); MEAN CORPUSCULAR HGB CONC 33.2 g/dL (32.0-36.0); MEAN CORPUSCULAR VOLUME 86.3 fL (79-99); MONOCYTES % (AUTO) 9.9 % (3.0-13.0); NEUTROPHILS % (AUTO) 61.8 % (40.0-77.0); NUCLEATED RED BLOOD CELLS 0.5 % (0.0-0.19); PLATELET COUNT (AUTO) 159 K/uL (130-400); RED CELL DISTRIBUTION WIDTH 15.1 % (11.0-15.5); WHITE BLOOD COUNT (AUTO) 8.8 K/uL (4.8-10.8)
[2020-06-16 06:16] LABS: CREATININE 1.6 mg/dL (0.5-1.5); MAGNESIUM 1.6 mg/dL (1.80-2.40); POTASSIUM 3.8 mmol/L (3.5-5.1)
[2020-06-16 08:00] VITALS: BP 118/61
[2020-06-16] MEDS ORDERED: MAGNESIUM 2GM PREMIX 50ML 50 ML IV SCH ×2 (08:00→10:00)
[2020-06-16] MEDS ORDERED: AZITHROMYCIN 500MG+NS 250ML 250 ML IV SCH (09:00)
[2020-06-16] MEDS ORDERED: FUROSEMIDE 40 MG TABLET PO SCH (09:00)
[2020-06-16] MEDS: SERTRALINE HCL 50 MG TABLET PO SCH (09:33)
[2020-06-16] MEDS: METOPROLOL SUCCINATE 50 MG TAB.SR.24H PO SCH (09:33)
[2020-06-16] MEDS: FERROUS SULFATE 325 MG TABLET.DR PO SCH (09:33)
[2020-06-16] MEDS: MAGNESIUM 2GM PREMIX 50ML 50 ML IV SCH (09:34)
[2020-06-16 12:00] VITALS: BP 134/63
[2020-06-16] MEDS ORDERED: ZOSYN 3.375GM+NS 50ML 50 ML IV SCH (13:00)
[2020-06-16] MEDS ORDERED: AMOX/CLAV 500/125MG TAB PO SCH (13:45)
[2020-06-16] MEDS ORDERED: AZIT250T9 PO (13:49)
[2020-06-16] MEDS ORDERED: AMOX-429 PO (13:49)
[2020-06-16] MEDS ORDERED: AZIT500T4 PO (13:49)
[2020-06-16] MEDS ORDERED: ASPI-1005 PO (14:07)
[2020-06-16] MEDS ORDERED: FURO40TA7 PO (14:36)
[2020-06-16 16:00] VITALS: BP 150/73
[2020-06-17] MEDS ORDERED: AZITHROMYCIN 250 MG TABLET PO SCH (09:00)
== END 2020-06-16 17:02 | disposition home or self-care (01) | DRG 919 ==
LOC: EDH 21:40 → EDHIP 23:52 → 4BH 06-12 00:40 → 2DH 06-12 18:24 → 4CH 06-15 17:52
PROVIDERS: ADMIT Internal Medicine; ATTEND Internal Medicine
PROC: 0W3P8ZZ Control Bleeding in Gastrointestinal Tract, Via Natural or Artificial Opening Endoscopic (ICD-10-PCS; principal; 2020-06-12)
PROC: 30233K1 Transfusion of Nonautologous Frozen Plasma into Peripheral Vein, Percutaneous Approach (ICD-10-PCS; 2020-06-13)
PROC: 30233N1 Transfusion of Nonautologous Red Blood Cells into Peripheral Vein, Percutaneous Approach (ICD-10-PCS; 2020-06-13)
PROC: 30233R1 Transfusion of Nonautologous Platelets into Peripheral Vein, Percutaneous Approach (ICD-10-PCS; 2020-06-13)
DX: K91.840 Postprocedural hemorrhage of a digestive system organ or structure following a digestive system procedure (principal); J18.9 Pneumonia, unspecified organism; I50.43 Acute on chronic combined systolic (congestive) and diastolic (congestive) heart failure; I21.A1 Myocardial infarction type 2; D62 Acute posthemorrhagic anemia; N17.9 Acute kidney failure, unspecified; E11.65 Type 2 diabetes mellitus with hyperglycemia; D72.810 Lymphocytopenia; E03.9 Hypothyroidism, unspecified; E11.51 Type 2 diabetes mellitus with diabetic peripheral angiopathy without gangrene; F02.80 Dementia in other diseases classified elsewhere, unspecified severity, without behavioral disturbance, psychotic disturbance, mood disturbance, and anxiety; E78.5 Hyperlipidemia, unspecified; I08.0 Rheumatic disorders of both mitral and aortic valves; G30.9 Alzheimer's disease, unspecified; G20 Parkinson's disease; I25.10 Atherosclerotic heart disease of native coronary artery without angina pectoris; R79.89 Other specified abnormal findings of blood chemistry; E11.649 Type 2 diabetes mellitus with hypoglycemia without coma; I11.0 Hypertensive heart disease with heart failure; K44.9 Diaphragmatic hernia without obstruction or gangrene; K63.5 Polyp of colon; K64.1 Second degree hemorrhoids; F32.9 Major depressive disorder, single episode, unspecified; R74.01 Elevation of levels of liver transaminase levels; I95.9 Hypotension, unspecified; Z95.1 Presence of aortocoronary bypass graft; Z95.3 Presence of xenogenic heart valve; I25.2 Old myocardial infarction; Z79.02 Long term (current) use of antithrombotics/antiplatelets; Z79.82 Long term (current) use of aspirin; Z79.84 Long term (current) use of oral hypoglycemic drugs; Z79.899 Other long term (current) drug therapy; Y83.8 Other surgical procedures as the cause of abnormal reaction of the patient, or of later complication, without mention of misadventure at the time of the procedure; Y82.8 Other medical devices associated with adverse incidents; Y92.89 Other specified places as the place of occurrence of the external cause; Z20.822 Contact with and (suspected) exposure to COVID-19
CPT/HCPCS: 36415; 36430; 36600; 45382; 71045; 80048; 80053; 81001; 82270; 82435; 82550; 82803; 82947; 82948; 83036; 83605; 83735; 83874; 83880; 84132; 84145; 84295; 84484; 85014; 85018; 85025; 85027; 85610; 85730; 86850; 86900; 86901; 86923; 86927; 87426; 87449; 87798; 93005; 93306; 93356; 99291; A4606; C9113; G0378; J0171; J0456; J1200; J1815; J1940; J2354; J2370; J2405; J2543; J2597; J2704; J3475; J3490; J7030; J7050; J7070; P9016; P9017; P9034; P9045; P9046